=== PATIENT | female | born 2000 | race Caucasian/White ===

== ENCOUNTER 2018-03-17 00:17 | Emergency (ER) | payer MEDICAID, OTHER ==
[~2018-03-17] VITALS: Ht 154.9 cm; Wt 68.0 kg
[2018-03-17 00:20] VITALS: BP 134/76
--- NOTE | 2018-03-17 00:25 | NUR ---
PT TAKEN TO BED 12
--- NOTE | 2018-03-17 00:26 | NUR ---
17 Y/O F W/C/O H/A X 3 DAYS. PT DENIES N/V/D; SKIN IS INTACT, PINK/WARM/DRY; AAOX4, PERRL, WITH EVEN AND STEADY GAIT; LUNGS CLEAR BL, BREATHING UNLABORED; HR EVEN AND REGULAR, BL PERIPHERAL PULSES PRESENT; BS ACTIVE X4, NO TENDERNESS TO PALPATION, NO HEPATOSPLENOMEGALLY PALPATED, RESONANT TO PERCUSSION; PT DENIES ANY FEVER, CP, SOB, OR COUGH AT THIS TIME; PT STATES 9/10 PAIN AT THIS TIME; VSS; PATIENT POSITIONED FOR COMFORT; HOB ELEVATED; BEDRAILS UP X2; BED DOWN.
--- NOTE | 2018-03-17 01:39 | NUR ---
Dr. Hills evaluating patient at bedside.
[2018-03-17] MEDS ORDERED: KETOROLAC 30 MG/ML VIAL IM ONE (01:40)
[2018-03-17] MEDS ORDERED: ACETAMINOPHEN EXTRA STRENGTH 500 MG TAB PO ONE (01:45)
[2018-03-17 02:38] VITALS: BP 128/82
--- NOTE | 2018-03-17 02:38 | NUR ---
Patient discharged with v/s stable. Written and verbal after care instructions given and explained. Patient alert, oriented and verbalized understanding of instructions. Ambulatory with steady gait. All questions addressed prior to discharge. ID band removed. Patient advised to follow up with PMD. Rx of FIORICET [id number] given. Patient educated on indication of medication including possible reaction and side effects. Opportunity to ask questions provided and answered.
== END 2018-03-17 02:38 | disposition home or self-care (01) ==
LOC: MED 00:17
DX: R51 Headache (principal)
CPT/HCPCS: 81025; 96372; 99283; J1885

== ENCOUNTER 2018-09-07 22:16 | Emergency (ER) | payer MEDICAID ==
[~2018-09-07] VITALS: Ht 154.9 cm; Wt 68.9 kg
[2018-09-07 22:28] VITALS: BP 111/72
--- NOTE | 2018-09-07 22:34 | NUR ---
AMBULATED TO LOBBY WITH VSS. PROVIDING URINE.
--- NOTE | 2018-09-07 23:38 | NUR ---
PT AMBULATED TO BED 11.
--- NOTE | 2018-09-07 23:40 | NUR ---
PT BIB FRIEND C/O SOB AND RIGHT SIDED TINGLING. PT STATES SHE WAS SITTING AT HOME X2 HRS AGO, SUDDEN ONSET OF SOB AND RIGTH SIDED TINGLING. PT STATES SHE TO BE 8 WEEKS , LMP:07/13/18. DENIES TRAUMA, N/V/D, OR CP. --HAND DRY WALL NAILER STRONG AND EQUAL BL. SPEECH CLEAR. NEG PRONATOR DRIFT. SKIN WARM, DRY AND INTACT. PMH: DENIES RX: DENIES
[2018-09-08 00:51] LABS: BASOPHILS % (AUTO) 0.2 % (0.0-2.0); EOSINOPHILS # (AUTO) 0.2 K/uL (0-0.4); EOSINOPHILS % (AUTO) 1.5 % (0.0-4.0); HEMATOCRIT 40.4 % (36-48); HEMOGLOBIN 13.7 g/dL (12.0-16.0); LYMPHOCYTES # (AUTO) 2.4 K/uL (2.5-16.5); LYMPHOCYTES % (AUTO) 19.6 % (20.5-51.1); MEAN CORPUSCULAR HEMOGLOBIN 30 pg (27-31); MEAN CORPUSCULAR HGB CONC 34 g/dL (33-37); MEAN CORPUSCULAR VOLUME 88.6 fL (80-94); MONOCYTES # (AUTO) 0.8 K/uL (0.8-1.0); MONOCYTES % (AUTO) 6.7 % (1.7-9.3); NEUTROPHILS # (AUTO) 8.7 K/uL (1.8-7.7); PLATELET COUNT (AUTO) 301 K/uL (140-450); RED BLOOD CELL COUNT(AUTO) 4.56 MIL/uL (4.20-5.40); RED CELL DISTRIBUTION WIDTH 13.4 % (11.6-13.7); WHITE BLOOD COUNT (AUTO) 12.1 K/uL (4.5-11.0)
[2018-09-08 00:56] LABS: APPEARANCE,URINE SL CLOUDY (CLEAR); BILIRUBIN,URINE NEGATIVE (NEGATIVE); BLOOD, URINE NEGATIVE (NEGATIVE); COLOR,URINE YELLOW (YELLOW); LEUKOCYTE ESTERASE ,URINE NEGATIVE (NEGATIVE); NITRITE, URINE NEGATIVE (NEGATIVE); UGLUCOSE NEGATIVE (NEGATIVE)
[2018-09-08 01:10] LABS: ANION GAP 13.8 (8-16); CARBON DIOXIDE 23.6 mmol/L (21-32); CREATININE 0.8 mg/dL (0.6-1.3); POTASSIUM 3.4 mmol/L (3.5-5.1)
--- NOTE | 2018-09-08 01:17 | NUR ---
US AT BEDSIDE.
--- NOTE | 2018-09-08 02:56 | NUR ---
Patient discharged with v/s stable. Written and verbal after care instructions given and explained. Patient verbalized understanding. Ambulatory with steady gait. All questions addressed prior to discharge. Advised to follow up with PMD.
[2018-09-08 04:36] VITALS: BP 99/57
== END 2018-09-08 02:56 | disposition home or self-care (01) ==
LOC: MED 22:16
DX: O99.341 Other mental disorders complicating pregnancy, first trimester (principal); F41.9 Anxiety disorder, unspecified; Z3A.08 8 weeks gestation of pregnancy
CPT/HCPCS: 36415; 76801; 80048; 81003; 84702; 85025; 86900; 86901; 99284; Q0092

== ENCOUNTER 2020-03-14 23:13 | Emergency (ER) | payer MEDICAID ==
[~2020-03-14] VITALS: Ht 154.9 cm; Wt 68.9 kg
[2020-03-14 23:19] VITALS: BP 127/69
[2020-03-15] MEDS ORDERED: KETOROLAC 30 MG/ML VIAL IVP ONE (00:10)
[2020-03-15] MEDS ORDERED: ONDANSETRON 4 MG/2 ML VIAL IVP ONE (00:10)
[2020-03-15 00:28] LABS: BASOPHILS # (AUTO) 0.1 K/uL (0.00-0.22); BASOPHILS % (AUTO) 0.6 % (0.0-2.0); EOSINOPHILS # (AUTO) 0.1 K/uL (0-0.4); EOSINOPHILS % (AUTO) 1.3 % (0.0-4.0); HEMATOCRIT 42.2 % (36-48); HEMOGLOBIN 14.1 g/dL (12.0-16.0); LYMPHOCYTES # (AUTO) 4.4 K/uL (2.5-16.5); LYMPHOCYTES % (AUTO) 39.5 % (20.5-51.1); MEAN CORPUSCULAR HEMOGLOBIN 30 pg (27-31); MEAN CORPUSCULAR HGB CONC 33 g/dL (33-37); MEAN CORPUSCULAR VOLUME 90.3 fL (80-94); MONOCYTES # (AUTO) 0.6 K/uL (0.8-1.0); MONOCYTES % (AUTO) 5.3 % (1.7-9.3); NEUTROPHILS % (AUTO) 53.3 % (42.2-75.2); PLATELET COUNT (AUTO) 288 K/uL (140-450); RED BLOOD CELL COUNT(AUTO) 4.67 MIL/uL (4.20-5.40); RED CELL DISTRIBUTION WIDTH 13.7 % (11.6-13.7); WHITE BLOOD COUNT (AUTO) 11.2 K/uL (4.8-10.8)
[2020-03-15 00:42] LABS: ALBUMIN 4.5 g/dL (3.4-5.0); ANION GAP 17.2 (8-16); CARBON DIOXIDE 23.3 mmol/L (21-32); CREATININE 0.9 mg/dL (0.6-1.3); POTASSIUM 4.5 mmol/L (3.5-5.1); TOTAL BILIRUBIN 0.5 mg/dL (0.0-1.0)
[2020-03-15] MEDS ORDERED: MAGNESIUM CITRATE 300 ML BTL PO ONE (01:50)
[2020-03-15 02:45] VITALS: BP 127/69
== END 2020-03-15 02:10 | disposition home or self-care (01) ==
LOC: MED 23:13
DX: N83.202 Unspecified ovarian cyst, left side (principal); F17.210 Nicotine dependence, cigarettes, uncomplicated; F12.10 Cannabis abuse, uncomplicated
CPT/HCPCS: 36415; 74176; 80053; 81002; 81025; 84702; 85025; 96374; 96375; 99284; J1885; J2405